=== PATIENT | male | born 1970 | race Caucasian/White ===

== ENCOUNTER → 2016-10-18 | Outpatient (CLI) | payer BC ==
[~2016-10-18] MED LIST: ASPI-730 PO; ATOR40TA20 PO; CIPR-280 PO; CYCL-375 PO; HYDR12.512 PO; INSU100I3 IM; INSU3INS3 IM; LISI40TA95 PO; PIOG15TA PO; RANI-197 PO
--- NOTE | 2016-10-18 10:17 | DI ---
EXAM: CT LOWER EXTREMITY RT W/O CONT LOCATION OF DICTATION: [facility] HISTORY: ITS.REASON: M25.561 ACUTE PAIN OF RIGHT KNEE COMPARISON: No prior studies available for comparison. TECHNIQUE: Multiple contiguous axial images were obtained of the right lower extremity without contrast. Coronal and sagittal reformatted images were utilized. 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 There are mild marginal osteophytes demonstrated. There is a joint space narrowed about the lateral patellar facet articulation. Marginal patellar osteophytes are demonstrated. There is slight lateral patellar migration suggested. The quadriceps and patella tendons are intact. There is mild to moderate subcutaneous soft tissue swelling/edema anterior to the patellofemoral joint. The visualized medial and lateral patellar retinaculum appear to be intact and within normal limits. No acute fractures are identified. There is a tiny 2 mm calcified or ossified density noted within the lateral tibiofemoral articulation anteriorly may or present a small loose body. This is in the region of the anterior cruciate ligament insertion. The ACL fibers are not well-defined. Recommend correlation for ACL injury. PCL fibers are within normal limits. Nonspecific subtle linear increased density within the anterior horn of the medial meniscus may represent mucoid degeneration. The visualized portions of the medial collateral ligament are unremarkable. Visualized portions of the lateral collateral ligament appear to be within normal limits. Limited evaluation of the lateral meniscus. There is a subcutaneous soft tissue swelling/edema along the lateral aspect of the knee joint. Impression: 1. Subcutaneous soft tissue swelling noted within the prepatellar soft tissues and along the lateral margin of the knee joint. 2. There is poor definition of the ACL fibers. An acute ACL sprain is not entirely excluded and clinical correlation is recommended. Limited evaluation of ligaments, menisci, and tendons. 3. A tiny ossified or calcified density within the lateral joint compartment anteriorly. A small loose bodies a consideration. 4. 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 4. There is mild lateral patellar migration. .
== END ==
LOC: IMA 09:14
PROVIDERS: ATTEND Family Medicine
DX: M17.11 Unilateral primary osteoarthritis, right knee (principal); M79.89 Other specified soft tissue disorders; R93.7 Abnormal findings on diagnostic imaging of other parts of musculoskeletal system; M25.561 Pain in right knee